=== PATIENT | male | born 1970 ===

== ENCOUNTER 2019-03-05 18:43 | Emergency (ER) | payer MEDICAID ==
[2019-03-05 18:48] VITALS: BMI 28.1
[2019-03-05 18:53] VITALS: RESP 18
--- NOTE | 2019-03-05 19:40 | ED PDOC ---
Arrival/HPI <RadhaJuan Luis - Last Filed: 03/05/19 20:04> - General Historian: Patient - History of Present Illness Narrative History of Present Illness (Text): 03/05/19 19:37 Patient is a 48yoM with PMH HTN presents to ED with a wound to the left 2nd digit. He claims to have been sawing wood when he cut himself with the saw about 2 hours prior. He reports minimal blood loss from the laceration. He reports minimal pain that is non-radiating. He denies loss of sensation, tingling, or weakness in the hand. He reports putting his hand on ice prior to coming to ED. He denies fever, chills, abdominal pain, nausea, vomiting, chest pain, shortness of breath. <Parviz Huber - Last Filed: 03/05/19 21:35> - General Chief Complaint: Finger,Hand,&Wrist Past Medical History - Infectious Disease Hx of Infectious Diseases: None - Tetanus Immunization Tetanus Immunization: >10 years Ago - Cardiac Hx Hypertension: Yes - Psychiatric Hx Substance Use: No - Surgical History Other/Comment: hernia R side <Parviz Huber - Last Filed: 03/05/19 21:35> Family/Social History Family/Social History: Diabetes, Hypertension Smoking Status: Never Smoked Hx Alcohol Use: Yes Frequency of alcohol use: Socially Hx Substance Use: No <Parviz Huber - Last Filed: 03/05/19 21:35> Allergies/Home Meds <RadhaJuan Luis - Last Filed: 03/05/19 20:04> <Parviz Huber - Last Filed: 03/05/19 21:35> Allergies/Adverse Reactions: Allergies No Known Allergies Allergy (Verified 03/05/19 18:48) Review of Systems - Review of Systems Constitutional: Normal. absent: Fatigue Eyes: Normal ENT: Normal Respiratory: Normal. absent: SOB Cardiovascular: Normal. absent: Chest Pain Gastrointestinal: Normal. absent: Abdominal Pain, Nausea, Vomiting Genitourinary Male: Normal Musculoskeletal: Normal Skin: Laceration Neurological: Normal. absent: Dizziness, Focal Weakness Endocrine: Normal Hemo/Lymphatic: Normal <Parviz Huber - Last Filed: 03/05/19 21:35> Physical Exam Vital Signs Temp Pulse Resp BP Pulse Ox 03/05/19 18:44 98.6 F 86 18 115/74 96 <Juan Luis Garcia - Last Filed: 03/05/19 20:04> Vital Signs Reviewed: Yes Vital Signs Temp Pulse Resp BP Pulse Ox 03/05/19 18:44 98.6 F 86 18 115/74 96 Temperature: Afebrile Blood Pressure: Normal Pulse: Regular Respiratory Rate: Normal Appearance: Positive for: Well-Appearing, Non-Toxic, Comfortable Pain Distress: None Mental Status: Positive for: Alert and Oriented X 3 - Systems Exam Head: Present: Atraumatic, Normocephalic Pupils: Present: PERRL Extroacular Muscles: Present: EOMI Conjunctiva: Present: Normal Mouth: Present: Moist Mucous Membranes Neck: Present: Normal Range of Motion Respiratory/Chest: Present: Clear to Auscultation, Good Air Exchange. No: Respiratory Distress, Accessory Muscle Use Cardiovascular: Present: Regular Rate and Rhythm, Normal S1, S2. No: Murmurs Abdomen: Present: Normal Bowel Sounds. No: Tenderness, Distention, Peritoneal Signs Upper Extremity: Present: Normal ROM, Neurovascularly Intact, Capillary Refill < 2s, Norm 2-Pt Discrimination, Other (2cm laceration of anterior L 2nd digit). No: Cyanosis, Edema Neurological: Present: GCS=15, CN II-XII Intact, Speech Normal, Motor Func Grossly Intact Skin: Present: Normal Color, Laceration (2cm laceration on anterior left 2nd digit). No: Dry, Rashes Psychiatric: Present: Alert, Oriented x 3, Normal Insight <Parviz Huber - Last Filed: 03/05/19 21:35> Medical Decision Making ED Course and Treatment: 03/05/19 20:03 Patient is a 48 year old male presenting to the emergency room complaining of a left hand 2nd digit wound. In agreement with resident note, which includes further HPI details. Patient was seen and evaluated with resident, came up with plan and treatment together. - RAD Interpretation Radiology Orders: 03/05/19 19:44 HAND LEFT 2ND DIGIT (FINGER) [RAD] Stat - Medication Orders Current Medication Orders: Discontinued Medications Cephalexin Monohydrate (Keflex) 500 mg PO ONCE STA; Protocol Stop: 03/05/19 19:46 Tetanus/Reduced Diphtheria/Acell Pertussis (Boostrix Vaccine Inj) 0.5 ml IM .ONCE ONE Stop: 03/05/19 19:43 <Juan Luis Garcia - Last Filed: 03/05/19 20:04> ED Course and Treatment: 03/05/19 19:46 Xray ordered. Tdap administered. Plan for lac repair. - Procedure PROCEDURE NOTE (Text): 03/05/19 21:16 Area was irrigated with saline and cleaned with povidone. Area was anesthetized with 0.5% bupivacaine. 5-0 [address] was used to place 8 sutures. Patient tolerated procedure well. <Parviz Huber - Last Filed: 03/05/19 21:35> - PA / LOAD OUT PERSON / Resident Statement / has reviewed & agrees with the documentation as recorded. / has examined the patient and agrees with the treatment plan. - Scribe Statement The provider has reviewed the documentation as recorded by the Salvadoribe Julianna Vanessa All medical record entries made by the Scribe were at my direction and personally dictated by me. I have reviewed the chart and agree that the record accurately reflects my personal performance of the history, physical exam, medical decision making, and the department course for this patient. I have also personally directed, reviewed, and agree with the discharge instructions and disposition. <Juan Luis Garcia - Last Filed: 03/05/19 20:04> Disposition/Present on Arrival <Juan Luis Garcia - Last Filed: 03/05/19 20:04> - Present on Arrival Any Indicators Present on Arrival: No History of DVT/PE: No History of Uncontrolled Diabetes: No Urinary Catheter: No History of Decub. Ulcer: No History Surgical Site Infection Following: None - Disposition Have Diagnosis and Disposition been Completed?: Yes Disposition Time: 21:33 <Parviz Huber - Last Filed: 03/05/19 21:35> - Disposition Diagnosis: Laceration, Finger fracture Disposition: HOME/ ROUTINE Patient Problems: Current Active Problems Problem Status Onset Finger fracture Acute Laceration Acute Condition: IMPROVED Discharge Instructions (ExitCare): Laceration Repair With Stitches (DC), Finger Fracture (DC) Print Language: IRANIAN Additional Instructions: Please follow up with your primary care physician within 1 week. You must follow up with Dr. Leon, orthopedist for your finger fracture within 1 week. Keep your sutures dry for 24hrs, then clean daily with soap and water. If you experience numbness, tingling, fever, chills, weakness, nausea, or vomiting, or if any symptoms worsen, return to the emergency department. Por favor lila un seguimiento con choi mdico de atencin primaria dentro de 1 semana. Necessita seguir con el Dr. Leon, ortopedista dentro de 1 semana para choi fractura de dedo. Mantenga deborah suturas secas kellee 24 horas, luego lmpielas diariamente con agua y jabn. Si experimenta entumecimiento, hormigueo, fiebre, escalofros, debilidad, nuseas o vmitos, o si los sntomas empeoran, regrese al departamento de emergencias. Referrals: Mor Peters MD [Primary Care Provider] - Follow up with primary Armani Leon MD [Staff Provider] - Follow up with primary Forms: [employer] (Indonesian)
[2019-03-05] MEDS ORDERED: TDAP Vaccine 0.5 mL Syr IM ONE (19:42)
[2019-03-05] MEDS ORDERED: ceFAZolin 1 gm in NS 1 GM/100 ML BAG IVPB STA (20:24)
[2019-03-05 21:58] VITALS: BP 120/68; PULSE 82; TEMP 98.1; O2SAT 98
--- NOTE | 2019-03-06 11:40 | RAD ---
PROCEDURE: Left Hand and 2nd digit radiographs. HISTORY: injury COMPARISON: None. TECHNIQUE: 3 views obtained. FINDINGS: BONES: There is a laceration and a focal defect in the 2nd middle phalanx there is no foreign body JOINTS: Normal. No osteoarthritic changes. SOFT TISSUES: Normal. OTHER FINDINGS: None. IMPRESSION: There is a laceration and a focal defect in the 2nd middle phalanx there is no foreign body
== END 2019-03-05 22:14 | disposition home or self-care (01) ==
LOC: ED 18:43
DX: S61.211A Laceration without foreign body of left index finger without damage to nail, initial encounter (principal); S62.601A Fracture of unspecified phalanx of left index finger, initial encounter for closed fracture; W27.0XXA Contact with workbench tool, initial encounter; I10 Essential (primary) hypertension; Z83.3 Family history of diabetes mellitus; Z82.49 Family history of ischemic heart disease and other diseases of the circulatory system
CPT/HCPCS: 12001; 73140; 90471; 90715; 96374; 99283; J0690

== ENCOUNTER 2019-03-13 14:58 | Emergency (ER) | payer MEDICAID ==
[2019-03-13 14:58] VITALS: BMI 28.1
--- NOTE | 2019-03-13 15:30 | ED PDOC ---
Arrival/HPI - General Chief Complaint: Suture/Staple Removal Time Seen by Provider: 03/13/19 15:03 - History of Present Illness Narrative History of Present Illness (Text): 03/13/19 15:27 48 yo male, rpesetns for sutures removla. states 2 sutures fell out no other complaints Past Medical History - Infectious Disease Hx of Infectious Diseases: None - Tetanus Immunization Tetanus Immunization: >10 years Ago - Cardiac Hx Hypertension: Yes - Psychiatric Hx Substance Use: No - Surgical History Other/Comment: hernia R side - Anesthesia Hx Anesthesia: Yes Hx Anesthesia Reactions: No Hx Malignant Hyperthermia: No Family/Social History Family/Social History: Unknown Family HX Smoking Status: Never Smoked Hx Alcohol Use: Yes Hx Substance Use: No Allergies/Home Meds Allergies/Adverse Reactions: Allergies No Known Allergies Allergy (Verified 03/13/19 15:20) Review of Systems - Review of Systems Constitutional: Normal Eyes: Normal ENT: Normal Respiratory: Normal Cardiovascular: Normal Gastrointestinal: Normal Genitourinary Male: Normal Musculoskeletal: Normal Skin: Normal, Laceration (c/d/i to left 2nd) Neurological: Normal Endocrine: Normal Hemo/Lymphatic: Normal Psychiatric: Normal Physical Exam Vital Signs Temp Pulse Resp BP Pulse Ox 03/13/19 15:16 99 F 82 19 157/98 H 98 Temperature: Afebrile Blood Pressure: Normal Pulse: Regular Respiratory Rate: Normal Appearance: Positive for: Well-Appearing, Non-Toxic, Comfortable Pain Distress: None Mental Status: Positive for: Alert and Oriented X 3 - Systems Exam Head: Present: Atraumatic, Normocephalic Pupils: Present: PERRL Extroacular Muscles: Present: EOMI Conjunctiva: Present: Normal Mouth: Present: Moist Mucous Membranes Neck: Present: Normal Range of Motion Respiratory/Chest: Present: Clear to Auscultation, Good Air Exchange. No: Respiratory Distress, Accessory Muscle Use Cardiovascular: Present: Regular Rate and Rhythm, Normal S1, S2. No: Murmurs Abdomen: No: Tenderness, Distention, Peritoneal Signs Back: Present: Normal Inspection Upper Extremity: Present: Normal Inspection. No: Cyanosis, Edema Lower Extremity: Present: Normal Inspection. No: Edema Neurological: Present: GCS=15, CN II-XII Intact, Speech Normal Skin: Present: Warm, Dry, Normal Color, Other ((+)c/d/i left 2/nd digit lac). No: Rashes Psychiatric: Present: Alert, Oriented x 3, Normal Insight, Normal Concentration Medical Decision Making ED Course and Treatment: 03/13/19 15:29 suture removed. Disposition/Present on Arrival - Present on Arrival Any Indicators Present on Arrival: No History of DVT/PE: No History of Uncontrolled Diabetes: No Urinary Catheter: No History of Decub. Ulcer: No History Surgical Site Infection Following: None - Disposition Have Diagnosis and Disposition been Completed?: Yes Diagnosis: Visit for suture removal Disposition: HOME/ ROUTINE Disposition Time: 15:29 Condition: STABLE
[2019-03-13 15:39] VITALS: BP 157/98; PULSE 82; RESP 19; TEMP 99; O2SAT 98
== END 2019-03-13 15:45 | disposition home or self-care (01) ==
LOC: ED 14:58
DX: Z48.02 Encounter for removal of sutures (principal)